=== PATIENT | male | born 1955 | race Caucasian/White ===

== ENCOUNTER 2017-07-02 06:05 | Day surgery (SDC) | payer BC ==
[2017-07-01 15:42] LABS: Absolute Monocytes 0.7 K/uL (0.1-1.3); Absolute Neutrophil 6.3 K/uL (1.8-8.0); Eosinophils % 1.3 % (0-4.4); Hematocrit 46.5 % (39.6-49.0); Lymphocytes % 21.9 % (15.3-44.8); MCV 100.1 fL (80-100); Monocytes % 7.5 % (3.3-12.3); RBC Red Blood Cell Count 4.65 M/uL (4.33-5.43)
[2017-07-01 15:45] LABS: Protime INR 1.03
--- NOTE | 2017-07-01 17:57 | EKG ---
Test Date: 2017-07-01 Test Time: 13:58:33 Cash Crop Farmer: ARMEN MEASUREMENT RESULTS: Intervals: Rate: 80 AR: 142 QRSD: 102 QT: 368 QTc: 424 [place]: P: 45 AR: 142 QRS: 49 T: 39 INTERPRETIVE STATEMENTS: Normal sinus rhythm Normal ECG Compared to ECG 10/30/2006 13:59:06 No significant changes Electronically Signed On 07-01-17 17:56:55 CDT by Oscar Mccord
[2017-07-02] MEDS ORDERED: HEPA 1000U/500MLS 1,000 UNIT/500 ML BAG IV ONE ×2 (06:10→07:52)
[2017-07-02] MEDS ORDERED: NA CHLORIDE 0.9% 500 ML ONE (06:10)
[2017-07-02] MEDS ORDERED: LIDOCAINE 1% 20 ML MDV ONE (06:10)
[2017-07-02] MEDS ORDERED: MIDAZOLAM HCL 2 MG/2 ML INJ ONE ×2 (07:14→07:21)
[2017-07-02] MEDS ORDERED: FENTANYL CITR 100 MCG/2 ML ONE (07:14)
--- NOTE | 2017-07-03 17:07 | OP ---
Surgeon: Dago Francisco MD Bin Cleaner: Lauren Barajas. Procedure: This is an outpatient procedure with an abdominal angiogram with selective renal angiogra m. Indication: Hypertension and positive arterial Doppler of the renal artery. Description Of Procedure: The patient was brought to the photof[facility] laboratory worker as an outpatient, prepped and drap ed in the routine sterile fashion, given 2 mg of sedation with Versed IV. A 6-[place] sheath introduc ed in the right common femoral artery. Angio-Seal was used to close the case. Angiogram revealed no rmal aorta, normal iliacs, and actually normal renal artery bilaterally. So, it was falsely positive renal arterial Doppler. Hypertension is much better controlled in the photofinishing laboratory worker and he was 110/70. There were no complications or blood loss. Feller Buncher Operator: Dago Francisco M.D. Total Conscious Sedation: 30 minutes. Final Diagnoses: Hypertension, normal renals. 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 Plan: We will follow up on this once a year. The case was discussed with his . He will go home today and see me in the office in the next 2 weeks. We will continue his present medical regimen as far as his hypertension is controlled and we will try to advise him to quit tobacco. EULALIA/FLORENCIA Voice ID: [id number] Report ID: [id number]
== END 2017-07-02 09:40 | disposition home or self-care (01) ==
LOC: CCL 06:05
PROC: B407YZZ Plain Radiography of Left Renal Artery using Other Contrast (ICD-10-PCS; principal; 2017-07-02)
PROC: B40 Imaging, Lower Arteries, Plain Radiography (ICD-10-PCS; 2017-07-02)
DX: R93.8 Abnormal findings on diagnostic imaging of other specified body structures (principal); I25.10 Atherosclerotic heart disease of native coronary artery without angina pectoris; I10 Essential (primary) hypertension; E78.5 Hyperlipidemia, unspecified; E78.6 Lipoprotein deficiency; F17.210 Nicotine dependence, cigarettes, uncomplicated; J44.9 Chronic obstructive pulmonary disease, unspecified; F41.9 Anxiety disorder, unspecified; Z95.5 Presence of coronary angioplasty implant and graft; Z82.49 Family history of ischemic heart disease and other diseases of the circulatory system
CPT/HCPCS: 36252; 36415; 80048; 85025; 85610; 85730; 93005; C1893; J2250; J3010